=== PATIENT | female | born 1960 | race Caucasian/White ===

== ENCOUNTER 2022-02-08 23:20 | Emergency (ER) | payer OTHER ==
[~2022-02-08] VITALS: Ht 170.2 cm; Wt 108.9 kg
[2022-02-08 23:20] VITALS: BP 138/90
--- NOTE | 2022-02-08 23:44 | NUR ---
PT TAKEN TO XRAY
--- NOTE | 2022-02-09 02:23 | NUR ---
pt taken to bed 7 via w/c
[2022-02-09] MEDS ORDERED: MORPHINE SULFATE 10 MG/ML VIAL IM ONE (02:25)
--- NOTE | 2022-02-09 02:25 | NUR ---
61 yo f biba from home with c/c of 02/11 rt wrist pain s/p fall xabout 4-5hrs ago. pt states she has arthritis to rt knee, lost her balanca and rt wrist caught pt's fall. pt denies hitting head and loc. pt denies taking medication for pain. limited rom d/t pain. radial pulses strong and bilat. cap refill <3. hx:arthritis alllergy:macrobid
--- NOTE | 2022-02-09 02:34 | NUR ---
bp 104/70 [id number]. clarified with ermd sin if she is comfortable with me still giving 6mg morphine im, brisa made change in order to toradol.
[2022-02-09] MEDS ORDERED: KETOROLAC 60 MG/2 ML VIAL IM ONE (02:35)
--- NOTE | 2022-02-09 02:53 | NUR ---
Dr. Zuniga examining patient.
[2022-02-09] MEDS ORDERED: NAPR-1871 PO (03:06)
[2022-02-09 03:19] VITALS: BP 104/70
--- NOTE | 2022-02-09 03:19 | NUR ---
Patient discharged with v/s stable. Written and verbal after care instructions given and explained. Patient alert, oriented and verbalized understanding of instructions. Wheel Chair Assisted with to car. All questions addressed prior to discharge. ID band removed. Patient advised to follow up with PMD. Rx of naprosyn given. Patient educated on indication of medication including possible reaction and side effects. Opportunity to ask questions provided and answered.
== END 2022-02-09 03:19 | disposition home or self-care (01) ==
LOC: MED 23:20
DX: S52.501A Unspecified fracture of the lower end of right radius, initial encounter for closed fracture (principal); F32.A Depression, unspecified; F41.9 Anxiety disorder, unspecified; M79.7 Fibromyalgia; M19.90 Unspecified osteoarthritis, unspecified site; Z88.1 Allergy status to other antibiotic agents; W18.30XA Fall on same level, unspecified, initial encounter; Y93.89 Activity, other specified; Y92.89 Other specified places as the place of occurrence of the external cause; Y99.8 Other external cause status
CPT/HCPCS: 73110; 96372; 99283; J1885

== ENCOUNTER 2022-07-30 19:33 | Emergency (ER) | payer OTHER ==
[~2022-07-30] VITALS: Ht 172.7 cm; Wt 110.2 kg
[~2022-07-30 19:33] MED LIST: NAPR-1871 PO
[2022-07-30 19:48] VITALS: BP 119/61
--- NOTE | 2022-07-30 22:22 | NUR ---
Patient walked out ER.
--- NOTE | 2022-07-30 22:58 | NUR ---
Patient taken to bed 10.
[2022-07-30] MEDS ORDERED: ACETAMINOPHEN EXTRA STRENGTH 500 MG TAB PO ONE (23:50)
[2022-07-30] MEDS ORDERED: cefTRIAXone 1,000 MG in LIDOCAINE MPF 1% 2.1 ML IM ONE (23:50)
[2022-07-30] MEDS ORDERED: AMOX1TAB8 PO (23:53)
[2022-07-30] MEDS ORDERED: ACET-10509 PO (23:53)
[2022-07-31 00:41] VITALS: BP 119/61
--- NOTE | 2022-07-31 00:43 | NUR ---
Patient discharged with v/s stable. Written and verbal after care instructions given and explained. Patient alert, oriented and verbalized understanding of instructions. Ambulatory with steady gait. All questions addressed prior to discharge. ID band removed. Patient advised to follow up with PMD. Rx of TYLENOL, AMOXICILLIN given. Patient educated on indication of medication including possible reaction and side effects. Opportunity to ask questions provided and answered.
== END 2022-07-31 00:40 | disposition home or self-care (01) ==
LOC: MED 19:33
DX: S61.451A Open bite of right hand, initial encounter (principal); S60.419A Abrasion of unspecified finger, initial encounter; F32.9 Major depressive disorder, single episode, unspecified; F41.9 Anxiety disorder, unspecified; Z88.8 Allergy status to other drugs, medicaments and biological substances; Z79.899 Other long term (current) drug therapy; W55.01XA Bitten by cat, initial encounter; Y93.89 Activity, other specified; Y92.89 Other specified places as the place of occurrence of the external cause; Y99.8 Other external cause status
CPT/HCPCS: 99283

== ENCOUNTER 2023-06-06 11:08 | Emergency (ER) | payer OTHER ==
[~2023-06-06] VITALS: Ht 170.2 cm; Wt 111.1 kg
[~2023-06-06 11:08] MED LIST changes: +ACET-10509 PO; +AMOX1TAB8 PO; +ATA25 PO; +ESCI10TA PO; +HYD1C TP; +IBUP-2213 PO; +IBUP-2218 PO; +VENL100T5 PO
[2023-06-06 11:25] VITALS: BP 115/75; PULSE 84; RESP 18; TEMP 97.9; O2SAT 96
[2023-06-06 12:52] LABS: BASOPHILS % (AUTO) 0.6 % (0.0-2.0); EOSINOPHILS # (AUTO) 0.1 K/uL (0-0.4); EOSINOPHILS % (AUTO) 1.9 % (0.0-4.0); HEMATOCRIT 34.7 % (36-48); HEMOGLOBIN 11.4 g/dL (12.0-16.0); LYMPHOCYTES # (AUTO) 0.9 K/uL (2.5-16.5); LYMPHOCYTES % (AUTO) 17.6 % (20.5-51.1); MEAN CORPUSCULAR HEMOGLOBIN 28 pg (27-31); MEAN CORPUSCULAR HGB CONC 33 g/dL (33-37); MEAN CORPUSCULAR VOLUME 85.2 fL (80-94); MONOCYTES # (AUTO) 0.4 K/uL (0.8-1.0); NEUTROPHILS # (AUTO) 3.9 K/uL (1.8-7.7); NEUTROPHILS % (AUTO) 71.9 % (42.2-75.2); PLATELET COUNT (AUTO) 235 K/uL (140-450); RED BLOOD CELL COUNT(AUTO) 4.07 MIL/uL (4.20-5.40); RED CELL DISTRIBUTION WIDTH 13.3 % (11.6-13.7); WHITE BLOOD COUNT (AUTO) 5.4 K/uL (4.8-10.8)
[2023-06-06 12:59] LABS: ANION GAP 13.3 (8-16); CALCIUM 8.7 mg/dL (8.5-10.1); POTASSIUM 3.3 mmol/L (3.5-5.1)
[2023-06-06 13:05] LABS: ALBUMIN 3.5 g/dL (3.4-5.0); BILIRUBIN,DIRECT 0.1 mg/dL (0.0-0.3); TOTAL BILIRUBIN 0.3 mg/dL (0.0-1.0); TOTAL PROTEIN, SERUM 7.2 g/dL (6.4-8.2)
[2023-06-06 14:06] LABS: APPEARANCE,URINE CLEAR (CLEAR); BILIRUBIN,URINE NEGATIVE (NEGATIVE); BLOOD, URINE 3+ (NEGATIVE); COLOR,URINE YELLOW (YELLOW); LEUKOCYTE ESTERASE ,URINE 3+ (NEGATIVE); NITRITE, URINE NEGATIVE (NEGATIVE); PROTEIN,URINE NEGATIVE (NEGATIVE); UGLUCOSE NEGATIVE (NEGATIVE)
[2023-06-06 14:34] LABS: RBC,URINE 11-20 (MOD) /HPF (0-5); WBC,URINE 60-80 /HPF (0-5)
[2023-06-06 14:35] LABS: BACTERIA,URINE 1+ /HPF (None Seen); MUCUS,URINE 1+ /LPF (None Seen); SQUAMOUS EPITHELIAL CELL,UR 4-10 (MOD) /LPF (0-3 (FEW)); TRICHOMONAS,URINE None Seen /HPF (None Seen); YEAST,URINE None Seen /HPF (None Seen)
[2023-06-06 14:40] VITALS: BP 126/78; PULSE 84; RESP 20; TEMP 98.2; O2SAT 98
[2023-06-06] MEDS ORDERED: CEPH500C16 PO (14:46)
== END 2023-06-06 14:51 | disposition home or self-care (01) ==
LOC: MED 11:08
DX: N39.0 Urinary tract infection, site not specified (principal); K80.20 Calculus of gallbladder without cholecystitis without obstruction; D64.9 Anemia, unspecified; M19.90 Unspecified osteoarthritis, unspecified site; Z98.890 Other specified postprocedural states; Z79.899 Other long term (current) drug therapy; Z79.1 Long term (current) use of non-steroidal anti-inflammatories (NSAID); Z79.2 Long term (current) use of antibiotics; Z88.1 Allergy status to other antibiotic agents
CPT/HCPCS: 36415; 76705; 80048; 80076; 81001; 83690; 85025; 87086; 99284; Q0092